=== PATIENT | female | born 1975 | race Caucasian/White ===

== ENCOUNTER → 2020-07-24 13:02 | Outpatient (CLI) | payer OTHER, SELFPAY ==
[2020-07-24 15:38] LABS: COVID19 -Nasal RAPID Negative (Negative)
== END ==
PROVIDERS: Visit Provider Physician Assistant
DX: Z01.812 Encounter for preprocedural laboratory examination (principal); Z20.822 Contact with and (suspected) exposure to COVID-19
CPT/HCPCS: 87635

== ENCOUNTER 2020-07-26 10:26 | Day surgery (SDC) | payer OTHER, SELFPAY ==
[2020-07-26 10:52] VITALS: BP 121/81; PULSE 75; RESP 16; TEMP 37.1; O2SAT 100; BMI 21.4
[2020-07-26] MEDS: SODIUM CHLORIDE 0.9% 1,000 ML 70 ML IV (11:15)
--- NOTE | 2020-07-26 11:21 | PM.HP.1 ---
History of Present Illness History of Present Illness Date Patient Seen: 07/26/20 Time Patient Seen: 11:20 Chief complaint: SDC Narrative: Patient is a very pleasant 45-year-old female who presented for colonoscopy. She was last evaluated by video visit on June 12, 2020. She has been experiencing chronic constipation with abdominal pain and bloating. Patient History Family & Social History Social History: household members spouse Tobacco & Substance use: Smoking Status Never smoker alcohol intake current alcohol intake frequency holiday/special occasion Substance Use Type does not use Meds Home Medications and Allergies Home Medications Medication Instructions Recorded Confirmed Type Probiotic 1 cap PO DAILY 07/26/20 07/26/20 History albuterol 90 mcg INHALATION QID PRN 07/26/20 07/26/20 History cetirizine [Zyrtec] 10 mg PO DAILY 07/26/20 07/26/20 History cholecalciferol (vitamin D3) 2,000 units PO DAILY 07/26/20 07/26/20 History escitalopram oxalate [Lexapro] 10 mg PO DAILY 07/26/20 07/26/20 History fluticasone propionate [Flonase] 1 spray INTRANASAL DAILY 07/26/20 07/26/20 History levothyroxine [Synthroid] 75 mcg PO DAILY 07/26/20 07/26/20 History loratadine 10 mg PO DAILY 07/26/20 07/26/20 History montelukast 10 mg PO DAILY 07/26/20 07/26/20 History montelukast [Singulair] 10 mg PO DAILY 07/26/20 07/26/20 History triamcinolone acetonide 1 applic TOPICAL DAILY 07/26/20 07/26/20 History Allergies Allergy/AdvReac Type Severity Reaction Status Date / Time amoxicillin Allergy Intermediate Hives Verified 07/26/20 10:43 penicillin V Allergy Intermediate Hives Verified 07/26/20 10:43 aspirin Allergy Mild Gastrointestinal Verified 07/26/20 10:43 Upset Review of Systems Review of Systems ROS: Yes All systems reviewed with the patient and are negative except as otherwise documented Exam Vital Signs (past 8 hours): - 07/26/20 10:52 Temperature 98.7 F Pulse Rate 75 Respiratory Rate 16 Blood Pressure 121/81 Pulse Oximetry 100 Oxygen Delivery Method Room Air Const General: cooperative, healthy appearing, comfortable, well developed and well groomed Nutritional Appearance: average body habitus Orientation: alert, awake and oriented x3 HENMT Head: normocephalic and atraumatic Resp Effort & Inspection: normal respiratory effort and able to speak in complete sentences Auscultation: clear to auscultation bilaterally Cardio Rate: regular rate Rhythm: regular rhythm Heart Sounds: S1 normal and S2 normal GI Palpation: soft Auscultation: normal bowel sounds Extrem Right lower extremity: no edema Left lower extremity: no edema Assessment & Plan Assessment & Plan narrative: 1. Chronic constipation 2. Abdominal pain 3. Abdominal bloating Colonoscopy today, further recommendations to follow
--- NOTE | 2020-07-26 11:47 | P.OP.ENDO_ITS ---
Operative Date/Time/Diagnoses Date of procedure: 07/26/20 Time of procedure: 11:24 Procedure Notes Procedure in detail: Surgeon: Juliet Allen DO Procedure: Diagnostic Colonoscopy Preoperative diagnosis: 1. Constipation 2. Abdominal pain 3. Bloating Postoperative diagnosis: 1. Melanosis coli 2. Grade 1 internal hemorrhoids 3. Otherwise unremarkable terminal ileum and mucosa Medications: Conscious sedation using 5 mg IV of Midazolam and 175 mcg IV of Fentanyl Preanesthesia Assessment An H and P was performed/updated and the Px?s ASA class is 1. The procedure was discussed in detail with the patient. The potential risks and complications including infection, bleeding, missed lesions, perforation, need for surgery in case of perforation, prolonged hospital stay, and were explained. A brief question and answer period was allotted and once all questions were answered, informed consent was obtained. The patient was brought back to the procedure room and placed on standard monitoring. The patient?s vital signs were monitored continuously throughout the entire procedure. Prior to starting, a timeout was performed to confirm the patient?s identity, allergies, medications, and procedure. Procedure in detail The patient was placed in left lateral decubitus position and once adequate sedation was obtained a FORTINO was performed. The digital rectal examination did not reveal any palpable lesions. The tip of the colonoscope was placed in the anal canal and advanced without difficulty all the way to the cecum which was identified by the appendiceal orifice and the ileocecal valve. Colon was noted to be tortuous and redundant. Melanosis coli was noted throughout the entire colon. Careful examination of all metcalf of the colon was performed with irrigation of any residual stool. Second pass of the ascending colon was c ompleted. Terminal ileum appeared unremarkable. Grade 1 internal hemorrhoids were noted on retroflexion. The patient tolerated the procedure well and will be brought back to the recovery area to be discharged once criteria are met. The prep was judged to be good/excellent and adequate to identify polyps less than 5 mm. The withdrawal time was 10min. The total physician intraservice time was 22min. Complications There were no complications and estimated blood loss was minimal. Recommendations: Resume previous diet Continue outPx medications Repeat colonoscopy in 10 years for screening Office follow up if persistent symptoms An emergency contact number was given to the patient for any complications related to the procedure
[2020-07-26] MEDS: MIDAZOLAM 5 MG/5 ML VIAL IV (11:48)
[2020-07-26] MEDS: fentaNYL 250 MCG/5 ML INJ IV (11:48)
[2020-07-26 11:50] VITALS: BP 122/80; PULSE 67; RESP 14; TEMP 37; O2SAT 100
[2020-07-26 11:55] VITALS: BP 123/81; PULSE 74; RESP 10; O2SAT 98
[2020-07-26 12:00] VITALS: BP 123/86; PULSE 63; RESP 13; O2SAT 99
[2020-07-26 12:05] VITALS: BP 125/79; PULSE 64; RESP 12; O2SAT 100
[2020-07-26 12:13] VITALS: BP 126/80; PULSE 74; RESP 13; O2SAT 100
== END 2020-07-26 12:40 | disposition home or self-care (01) ==
PROVIDERS: Referring Provider Student in an Organized Health Care Education/Training Program; Visit Provider Student in an Organized Health Care Education/Training Program
PROC: 0DJD8ZZ Inspection of Lower Intestinal Tract, Via Natural or Artificial Opening Endoscopic (ICD-10-PCS; CPT 45378; principal; 2020-07-26 11:30)
DX: K59.00 Constipation, unspecified (principal); R10.9 Unspecified abdominal pain; R14.0 Abdominal distension (gaseous); K64.0 First degree hemorrhoids; K63.89 Other specified diseases of intestine
CPT/HCPCS: 45378; J2250; J3010